=== PATIENT | male | born 1970 | race Hispanic/Latino ===

== ENCOUNTER 2020-05-21 19:46 | Emergency (ER) | payer SELFPAY ==
[2020-05-21] MEDS ORDERED: ONDANSETRON HCL 4 MG/2 ML VIAL ONE (20:27)
[2020-05-21] MEDS ORDERED: MORPHINE SULFATE 4 MG/1ML SYG ONE (20:27)
[2020-05-21 21:36] LABS: APPEARANCE,URINE Clear (CLEAR); BILIRUBIN,URINE Negative (NEGATIVE); COLOR,URINE Yellow (YELLOW); GLUCOSE, URINE (UA) Negative (NEGATIVE); KETONES,URINE Negative (NEGATIVE); LEUKOCYTE ESTERASE ,URINE Negative (NEGATIVE); NITRATE,URINE Negative (NEGATIVE); OCCULT BLOOD,URINE Negative (NEGATIVE); PROTEIN,URINE Trace mg/dL (NEGATIVE)
[2020-05-21 21:39] LABS: BASOPHILS % (AUTO) 0.6 % (0.0-5.0); EOSINOPHILS % (AUTO) 2.4 % (0.0-8.0); HEMATOCRIT 45.7 % (42-54); MEAN CORPUSCULAR HEMOGLOBIN 30.1 pg (27.0-33.0); MEAN CORPUSCULAR HGB CONC 34.8 g/dL (32.0-36.0); MEAN CORPUSCULAR VOLUME 86.6 fL (79-99); MONOCYTES % (AUTO) 5.8 % (3.0-13.0); PLATELET COUNT (AUTO) 280 K/uL (130-400); RED BLOOD CELL COUNT(AUTO) 5.28 MIL/uL (4.50-6.20); RED CELL DISTRIBUTION WIDTH 12.5 % (11.0-15.5); WHITE BLOOD COUNT (AUTO) 9.9 K/uL (4.8-10.8)
[2020-05-21 21:47] LABS: INR 0.95 (0.85-1.15); PARTIAL THROMBOPLASTIN TIME 26.8 SEC (26.3-35.5); PROTHROMBIN TIME 10.3 SEC (9.6-11.6)
[2020-05-21 21:57] LABS: BACTERIA,URINE Few /HPF (None Seen); CREATININE 1.1 mg/dL (0.5-1.5); MUCUS,URINE Many LPF (None Seen); POTASSIUM 3.6 mmol/L (3.5-5.1); SQUAMOUS EPITHELIAL CELL,UR Few /HPF (0-2)
[2020-05-21 21:59] LABS: B-TYPE NATRIURETIC PEPTIDE 8 pg/mL (0-100)
[2020-05-21 22:01] LABS: BILIRUBIN,TOTAL 0.3 mg/dL (0.2-1.0); TOTAL PROTEIN, SERUM 7.6 g/dL (6.0-8.3)
[2020-05-21] MEDS ORDERED: IOHEXOL-350 75 ML VIAL IV ONE (22:15)
[2020-05-21] MEDS ORDERED: KETOROLAC TROMETHAMINE 30MG/ML ONE (23:55)
[2020-05-21] MEDS ORDERED: ORPHENADRINE CITRATE 30 MG/ML ML ONE (23:55)
== END 2020-05-22 00:17 | disposition home or self-care (01) ==
LOC: EDH 19:46
DX: K29.00 Acute gastritis without bleeding (principal); K59.00 Constipation, unspecified; M54.5 Low back pain; Z87.442 Personal history of urinary calculi; Z72.0 Tobacco use
CPT/HCPCS: 36415; 71045; 74177; 76705; 80053; 81001; 82550; 83605; 83690; 83880; 84484; 85025; 85610; 85730; 87040; 93005; 96361; 96374; 96375 ×2; 99285; J1885; J2270; J2360; J2405; Q9967